=== PATIENT | male | born 2000 | race Caucasian/White ===

== ENCOUNTER 2018-04-19 18:31 | Emergency (ER) | payer OTHER ==
[~2018-04-19] VITALS: Ht 182.9 cm; Wt 108.9 kg
[2018-04-19 19:14] LABS: BILIRUBIN,URINE NEGATIVE (NEG); CLARITY,URINE TURBID; COLOR,URINE YELLOW; NITRITE,URINE NEGATIVE (NEG); PH,URINE 8.5; PROTEIN,URINE NEGATIVE (NEG-TRACE); UROBILINOGEN,URINE 0.2 mg/dL (0.2 mg/dL)
[2018-04-19 19:30] VITALS: BP 164/85
[2018-04-19 19:30] LABS: AMORPHOUS SEDIMENT,UR PRESENT /HPF; BACTERIA,URINE FEW /HPF (0-FEW); RBC,URINE 0 /HPF (0-2); WBC,URINE 0 /HPF (0-4)
--- NOTE | 2018-04-19 19:49 | RAD ---
EXAM: Cunningham scale and color Doppler scrotal sonogram. HISTORY: Pain. TECHNIQUE: Cunningham scale and color Doppler sonographic imaging of the testes with spectral waveform analysis was performed. COMPARISON: None. FINDINGS: The right testis measures 4.3 x 3.3 x 2.5 cm. Left testis measures 4.4 x 2.6 x 2.5 cm. There is normal symmetric blood flow within both testes. No focal testicular parenchymal lesion is seen. There is a small right hydrocele. There is a small right epididymal cyst measuring 4 mm. IMPRESSION: 1. Unremarkable testes. 2. Small right hydrocele. 3. Small right epididymal cyst. Electronically signed by: Charity Maguire MD (04/19/2018 7:45 PM) [facility]
[2018-04-19] MEDS ORDERED: oxyCODONE/APAP 10/325 1 TAB TABLET PO ONE (20:00)
[2018-04-19] MEDS ORDERED: ONDANSETRON ODT 4 MG TAB.RAPDIS. PO ONE (20:00)
--- NOTE | 2018-04-19 20:01 | PHYS DOC ---
Past Medical History Past Medical History: No Pertinent History Past Surgical History: Appendectomy Alcohol Use: None Drug Use: None Adult General Chief Complaint Chief Complaint: TESTICULAR PAIN OR INJURY HPI HPI Patient is a 27 year old male presents with intermittent left testicular pain described as sharp for the past 18 hours. Pain is worse palpation, position pain. Denies groin pain, flank pain, nausea vomiting sweats. No rectal pain. No urethral discharge. No fever chills or sweats. No history of kidney stones. No other acute symptoms or complaints. [] Review of Systems Review of Systems .. All other review symptoms reviewed. All other systems were reviewed and found to be within normal limits, except as documented in this note. Current Medications Current Medications Current Medications Medications (Trade) Dose Ordered Sig/Vahe Start Time Stop Time Status Last Admin Dose Admin Ondansetron HCl (Zofran Odt) 4 mg 1X ONCE 04/19/18 20:00 04/19/18 20:01 04/19/18 19:48 4 MG Oxycodone/ Acetaminophen (Percocet 10/325) 1 tab 1X ONCE 04/19/18 20:00 04/19/18 20:01 04/19/18 19:48 1 TAB Allergies Allergies Allergies Coded Allergies Type Severity Reaction Last Updated Verified metoclopramide Allergy Mild jittery 04/19/18 Yes Physical Exam Physical Exam Constitutional: Well developed, well nourished, no acute distress, non-toxic appearance. [] HENT: Normocephalic, atraumatic, bilateral external ears normal, oropharynx moist, no oral exudates, nose normal. [] Eyes: PERRLA, EOMI, conjunctiva normal, no discharge. [] Neck: Normal range of motion, no tenderness, supple, no stridor. [] Cardiovascular:Heart rate regular rhythm, no murmur [] Lungs & Thorax: Bilateral breath sounds clear to auscultation [] Abdomen: Bowel sounds normal, soft, no tenderness, no masses, no pulsatile masses. [] : Scrotum, no swelling, erythema, both testicles present, cremasteric reflexes intact. Left testicular tenderness, penis, circumcised, no discharge or lesions. Palpable hernias.. [] Back: No tenderness, no CVA tenderness. [] Extremities: No tenderness, no cyanosis, no clubbing, ROM intact, no edema. [] Neurologic: Alert and oriented X 3, normal motor function, normal sensory function, no focal deficits noted. [] Psychologic: Affect normal, judgement normal, mood normal. [] Current Patient Data Vital Signs Vital Signs Date Time Temp Pulse Resp B/P (MAP) Pulse Ox O2 Delivery O2 Flow Rate FiO2 04/19/18 19:48 18 97 04/19/18 18:37 98.2 124 168/88 (114) Room Air 98.2 Lab Values Laboratory Tests Test 04/19/18 19:06 Urine Collection Type Unknown Urine Color Yellow Urine Clarity Turbid Urine pH 8.5 Urine Specific Ayr 1.025 Urine Protein Negative mg/dL (NEG-TRACE) Urine Glucose (UA) Negative mg/dL (NEG) Urine Ketones (Stick) Negative mg/dL (NEG) Urine Blood Negative (NEG) Urine Nitrite Negative (NEG) Urine Bilirubin Negative (NEG) Urine Urobilinogen Dipstick 0.2 mg/dL (0.2 mg/dL) Urine Leukocyte Esterase Negative (NEG) Urine RBC 0 /HPF (0-2) Urine WBC 0 /HPF (0-4) Urine Amorphous Sediment Present /HPF Urine Bacteria Few /HPF (0-FEW) Urine Mucus Slight /LPF EKG EKG [] Radiology/Procedures Radiology/Procedures [] Course & Med Decision Making Course & Med Decision Making Pertinent Labs and Imaging studies reviewed. (See chart for details) [Ultrasound, UA nondiagnostic. Good blood flow in both testiciles. Will treat supportively PCP follow-up. Return precautions reviewed.] Dragon Disclaimer Dragon Disclaimer This electronic medical record was generated, in whole or in part, using a voice recognition dictation system. Departure Departure Impression: Primary Impression: Testicular pain, left Disposition: 01 HOME, SELF-CARE Condition: GOOD Referrals: JUDI MOORE (PCP) Patient Instructions: Testicular Masses Additional Instructions: Evaluated emergency department for left testicular pain. Lab work and testicular ultrasound were performed and are nondiagnostic. The exact cause of your symptoms has not been determined. Please take 600 mg of ibuprofen 3 times daily support. With your PCP in the next 1-2 days for reevaluation. Return to the ED if new or worsening symptoms. DAYSI IBARRA DO Apr 19, 2018 20:00
== END 2018-04-19 20:16 | disposition home or self-care (01) ==
LOC: ER 18:31 → EDBD 18:31 → ER 20:16
DX: N50.812 Left testicular pain (principal); Z90.89 Acquired absence of other organs; Z88.8 Allergy status to other drugs, medicaments and biological substances
CPT/HCPCS: 76870; 81001; 99285; Q0162

== ENCOUNTER 2018-06-21 13:23 | Emergency (ER) | payer OTHER ==
[~2018-06-21] VITALS: Ht 182.9 cm; Wt 113.4 kg
[2018-06-21 13:38] VITALS: BP 133/72
--- NOTE | 2018-06-21 13:43 | PHYS DOC ---
Past Medical History Past Medical History: No Pertinent History Past Surgical History: Appendectomy Alcohol Use: None Drug Use: None Adult General Chief Complaint Chief Complaint: LACERATION/AVULSION HPI HPI Patient is a 18 year old male who presents with right thumb injury. The patient was using a leaf blower and somehow his thumb came into contact with the fan part of that machine. He sustained an avulsion injury to the tip of the right thumb. The patient is uncertain when his last tetanus shot was. He denies any additional complaints or injuries today. Review of Systems Review of Systems Constitutional: Denies Eyes: Denies change in visual acuity HENT: Denies nasal congestion Respiratory: Denies cough or shortness of breath Cardiovascular: No additional information not addressed in HPI GI: Denies : Denies Musculoskeletal: Denies Integument: Denies rash or skin lesions Neurologic: Denies headache All other systems were reviewed and found to be within normal limits, except as documented in this note. Current Medications Current Medications Current Medications Medications (Trade) Dose Ordered Sig/Vahe Start Time Stop Time Status Last Admin Dose Admin Acetaminophen/ Hydrocodone Bitart (Lortab 5/325) 2 tab 1X ONCE 06/21/18 14:30 06/21/18 14:31 DC 06/21/18 14:38 2 TAB Diphtheria/ Tetanus/Acell Pertussis (Boostrix) 0.5 ml ONCE ONCE 06/21/18 14:00 06/21/18 14:01 DC 06/21/18 14:13 0.5 ML Lidocaine HCl (Lidocaine 1% 20ml Vial) 20 ml 1X ONCE 06/21/18 13:45 06/21/18 13:46 DC 06/21/18 14:12 20 ML Allergies Allergies Allergies Coded Allergies Type Severity Reaction Last Updated Verified metoclopramide Adverse Reaction Mild jittery 06/21/18 Yes Physical Exam Physical Exam Constitutional: Well developed, well nourished, no acute distress, non-toxic appearance HENT: Normocephalic, atraumatic, bilateral external ears normal, oropharynx moist Eyes: PERRLA, EOMI, conjunctiva normal Neck: Normal range of motion, no tenderness Lungs & Thorax: Bilateral breath sounds clear Abdomen: Bowel sounds normal, soft, no tenderness Skin: Warm, dry, no erythema, no rash Extremities: Distal tip of the right thumb. There is no injury that is suturable. The avulsion is through the superficial layers of the skin but not into the subdermal tissue Neurologic: Alert and oriented X 3 Psychologic: Affect normal Current Patient Data Vital Signs Vital Signs Date Time Temp Pulse Resp B/P (MAP) Pulse Ox O2 Delivery O2 Flow Rate FiO2 06/21/18 14:38 16 99 Room Air 06/21/18 13:38 99.0 90 133/72 (92) 99.0 EKG EKG [] Radiology/Procedures Radiology/Procedures Thumb XR: no acute fracture. Course & Med Decision Making Course & Med Decision Making Pertinent Labs and Imaging studies reviewed. (See chart for details) Patient was evaluated in the emergency department for an avulsion injury to the tip of the right thumb. The wound was not amenable to suturing. The wound was dressed with Vaseline gauze after being cleaned by nursing staff. A splint was applied for comfort. The patient was given a tetanus shot in the ER. He was discharged to home with some occasions for pain. Wound care was discussed and signs and symptoms of infection and patient was advised to come back should these occur. All of his questions were answered prior to discharge home. Dragon Disclaimer Dragon Disclaimer This electronic medical record was generated, in whole or in part, using a voice recognition dictation system. Departure Departure Disposition: HOME, SELF-CARE Condition: GOOD Referrals: JUDI MOORE (PCP) Scripts Ibuprofen (IBUPROFEN) 800 Mg Tablet 800 MG PO PRN TID PRN for PAIN, #20 TAB take with food or milk to avoid upsetting stomach Prov: ROBERT STRINGER DO 06/21/18 Hydrocodone/Apap 5-325 (NORCO 5-325 TABLET) 1 Each Tablet 1-2 EACH PO PRN Q6HRS PRN for SEVERE PAIN, #15 as needed for pain Prov: ROBERT STRINGER DO 06/21/18 ROBERT STRINGER DO Jun 21, 2018 13:43
[2018-06-21] MEDS ORDERED: LIDOCAINE 1% Multi-Dose 20 ML VIAL. INJ ONE (13:45)
[2018-06-21] MEDS ORDERED: DIPHTH,PERTUSS(ACELL),TET TOX 0.5 ML DISP.SYRIN. VAX IM ONE (14:00)
--- NOTE | 2018-06-21 14:28 | RAD ---
Examination: 3 views of the left thumb HISTORY: History of laceration of the left thumb COMPARISON: None available. FINDINGS: The alignment of the first carpometacarpal joint, metacarpophalangeal, interphalangeal joints grossly appears unremarkable. There is no acute fracture or dislocation identified. Small soft tissue laceration identified in the distal tip of the thumb. IMPRESSION: 1. No acute osseous findings. 2. Small soft tissue laceration identified in the distal tip of the thumb. Electronically signed by: Mihir Mendez MD (06/21/2018 2:24 PM) [facility]
[2018-06-21] MEDS ORDERED: IBUP-1060 PO (14:29)
[2018-06-21] MEDS ORDERED: HYDR-3164 PO (14:29)
[2018-06-21] MEDS ORDERED: HYDROcodone/APAP 5/325MG 1 TAB TABLET PO ONE (14:30)
== END 2018-06-21 14:45 | disposition home or self-care (01) ==
LOC: ER 13:23
DX: S61.011A Laceration without foreign body of right thumb without damage to nail, initial encounter (principal); Z88.8 Allergy status to other drugs, medicaments and biological substances; Y28.8XXA Contact with other sharp object, undetermined intent, initial encounter; Y93.89 Activity, other specified; Y92.89 Other specified places as the place of occurrence of the external cause; Y99.8 Other external cause status
CPT/HCPCS: 29125; 73140; 90471; 90715; 99283

== ENCOUNTER 2019-04-10 00:16 | Inpatient (IN) | payer SELFPAY ==
[~2019-04-10] VITALS: Ht 180.3 cm; Wt 100.8 kg
[~2019-04-10 00:16] MED LIST: HYDR-3164 PO; IBUP-1060 PO
[2019-04-10] MEDS ORDERED: GADOTERATE 7.5 MMOL/15ML VIAL. IVP ONE (02:00)
--- NOTE | 2019-04-10 02:31 | RAD ---
Brain MRI, With and Without Contrast: History: headaches and possible intracranial mass. Technique: Multiplanar and multisequence imaging of the brain was performed before and after the administration of 15 cc of IV Magnevist contrast. Diffusion weighted sequences were performed. Findings: There is no mass effect or extraaxial fluid collections. There is no hydrocephalus.The mcclain and white matter appears normal and symmetrical. Diffusion weighted sequences demonstrate no imaging evidence of acute ischemia. There is no abnormal enhancement. There is opacification of the right frontal sinus. Impression: Opacification right frontal sinus. No intracranial findings. End impression Brain and to MRV Without Contrast: Technique: 3D [id number] 2 slab imaging of the brain was performed, without contrast. Maximum intensity reconstruction was performed. Findings: The venous system appears normal. Impression: Negative examination. Electronically signed by: Reagan Lilly III, MD (04/10/2019 2:28 AM) [facility]
--- NOTE | 2019-04-10 02:31 | RAD ---
Brain MRI, With and Without Contrast: History: headaches and possible intracranial mass. Technique: Multiplanar and multisequence imaging of the brain was performed before and after the administration of 15 cc of IV Magnevist contrast. Diffusion weighted sequences were performed. Findings: There is no mass effect or extraaxial fluid collections. There is no hydrocephalus.The mcclain and white matter appears normal and symmetrical. Diffusion weighted sequences demonstrate no imaging evidence of acute ischemia. There is no abnormal enhancement. There is opacification of the right frontal sinus. Impression: Opacification right frontal sinus. No intracranial findings. End impression Brain and to MRV Without Contrast: Technique: 3D [id number] 2 slab imaging of the brain was performed, without contrast. Maximum intensity reconstruction was performed. Findings: The venous system appears normal. Impression: Negative examination. Electronically signed by: Reagan Lilly III, MD (04/10/2019 2:28 AM) [facility]
[2019-04-10] MEDS: fentaNYL PF VIAL 100 MCG/2 ML VIAL IVP PRN ×3 (02:52→11:02)
[2019-04-10 03:15] VITALS: BP 144/93
[2019-04-10 07:00] VITALS: BP 131/82
--- NOTE | 2019-04-10 08:16 | NUR ---
Pt admitted this am from MRI and placed on heart monitor, however did not show on monitor until this am. Pt asymptomatic and vitals within normal limits during the am. Will continue to monitor.
[2019-04-10] MEDS ORDERED: FLUTICASONE 50MCG/NASAL SPRAY 16GM BOTTLE. NS SCH (10:30)
[2019-04-10 11:00] VITALS: BP 126/78
--- NOTE | 2019-04-10 11:11 | HP ---
ADMIT DATE: 04/10/2019 HISTORY OF PRESENT ILLNESS: The patient is a 19-year-old male patient who presented to the Emergency Room with a complaint of headache after what he describes as it jabs. The patient has had similar instances in the past, most recently one on 03/24 this month. He does have a past history of anxiety, chronic pain, chronic lumbar and sciatic pain and migraines. The patient has not followed up with his primary care physician since last visit. The patient in the past was dependent on narcotic for his chronic pain and also benzodiazepine for muscle spasm. He reportedly weaned himself off of all anxiety medication. 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 He was evaluated in the Emergency Room and has had lab work, which was basically mostly unremarkable. Urinalysis was also unremarkable and toxic screen was positive for alcohol. Blood alcohol level of 17 mg/dL. Apparently, he has had a CT scan of the head, which showed that the patient has hypodensity in the area of the left sigmoid transverse sinus. Additionally, there is an area of rounded hypodensity series 2 image 12 just above this area measuring approximately 1.9 cm in diameter. No acute vascular territory infarction identified. Godfrey white distinction is preserved. The ventricular system is within normal limits without compression hydrocephalus. Basal cisterns are well maintained. The visualized portion of the paranasal sinuses and mastoid air cells are well pneumatized. No acute fracture and the impression is that the patient has a left posterior cranial fossa. In the left posterior cranial fossa, there is a round hyperdensity measuring 1.8 cm in diameter with possible hypodensity within the expected location of the sigmoid transverse sinus. Differential consideration includes sinus thrombosis. Given the possibility of a rounded mass lesion, MRI brain with contrast if possible is recommended for further evaluation; and therefore, the patient was transferred to [facility] for an MRI and also to consult the neurologist and neurosurgeon. PAST MEDICAL HISTORY: Significant for anxiety, chronic lumbar and sciatic pain and migraine headache for which he was on benzodiazepine and narcotic, but apparently he weaned himself off of all anxiety medication. PAST SURGICAL HISTORY: Significant for appendectomy. FAMILY HISTORY: Noncontributory. SOCIAL HISTORY: He is single, apparently does not smoke, drinks alcohol rarely and also marijuana. ALLERGIES: HE IS ALLERGIC TO METOCLOPRAMIDE. MEDICATIONS: He is on ciprofloxacin 250 mg twice a day, naproxen 500 mg twice a day and hydroxyzine 25 mg 3 times a day. PHYSICAL EXAMINATION: GENERAL: On arrival to the Emergency Room, the patient looked well and was clearly in no apparent respiratory distress. No pallor, jaundice, cyanosis or thyromegaly. No jugular venous distention. No limb edema. VITAL SIGNS: His heart rate was 114, blood pressure was 130/78, temperature was 99.1, respiratory rate 20, and oxygen saturation was 99% on room air. HEAD, EYES, EARS, NOSE AND THROAT: Showed normocephalic, atraumatic. NECK: Supple. HEART: Showed normal first and second heart sounds. No gallop or murmur. CHEST: Clear to auscultation. No crepitation or rhonchi. ABDOMEN: Distended, soft, nontender. No guarding or rigidity. No organomegaly. All hernial orifice intact. Bowel sounds normal. NEUROLOGIC: He was awake, alert, responding appropriately. All cranial nerves intact. EXTREMITIES: He moves extremities without difficulty, ambulates without assistance or assistive devices. LABORATORY DATA: His lab work done at Emergency [facility] of [facility] showed a white cell count of 8400, hemoglobin 16.7, hematocrit 49, MCV 89 and platelet count 242,000 with normal manual differential. His prothrombin time, INR and aPTT were normal. D-dimer was 0.39 mg/dL. His chemistry showed a serum sodium 144, potassium 3.8, chloride 105, bicarbonate 24, anion gap of 15, BUN 11, creatinine 0.9, estimated GFR was 160 mL per minute. His glucose was 109, calcium was 9.9, magnesium 2. Total bilirubin, AST, ALT, alkaline phosphatase were normal. Total CK was 154. Total protein was 8.8, albumin was 5.1. Urinalysis essentially unremarkable. Toxic screen was positive for blood alcohol of 17 mg/dL. The patient was transferred to [facility] for an MRI and MRA and to consult the neurologist as well as the neurosurgeon. VICENTE RALPH MD DR: JONATAN/tomasa JOB#: [id number] / [id number]
[2019-04-10] MEDS: AMOXICILLIN/K CLAV 875/125MG TABLET. PO SCH ×2 (11:34→20:08)
[2019-04-10 11:35] LABS: HEMATOCRIT 42.9 % (39.0-53.0); HEMOGLOBIN 14.7 g/dL (13.0-17.5); RED BLOOD COUNT 4.88 x10^6/uL (4.30-5.70); RED CELL DISTRIBUTION WIDTH 12.9 % (11.5-14.5); WHITE BLOOD COUNT 8.2 x10^3/uL (4.0-11.0)
[2019-04-10] MEDS: oxyCODONE IR 5 MG TABLET PO PRN ×2 (11:38→20:02)
[2019-04-10 11:53] LABS: ALBUMIN 4.3 g/dL (3.4-5.0); ALBUMIN/GLOBULIN RATIO 1.2 (1.0-1.7); CALCIUM 9.3 mg/dL (8.5-10.1); GFR 94.3; POTASSIUM 3.5 mmol/L (3.5-5.1); TOTAL BILIRUBIN 0.5 mg/dL (0.2-1.0); TOTAL PROTEIN 7.9 g/dL (6.4-8.2)
[2019-04-10] MEDS: MORPHINE SULFATE 4 MG/ML VIAL. IV PRN ×3 (13:32→23:14)
[2019-04-10 15:00] VITALS: BP 129/74
[2019-04-10 19:52] VITALS: BP 124/66
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
[2019-04-10] MEDS: clonazePAM 0.5 MG TABLET PO SCH (23:30)
[2019-04-10 23:42] VITALS: BP 122/88
[2019-04-11] MEDS: MORPHINE SULFATE 4 MG/ML VIAL. IV PRN (05:58)
[2019-04-11 07:00] VITALS: BP 111/83
[2019-04-11] MEDS: oxyCODONE IR 5 MG TABLET PO PRN ×2 (08:02→10:59)
[2019-04-11] MEDS ORDERED: CLON-77 PO (08:41)
[2019-04-11] MEDS ORDERED: CITA20TA6 PO (08:41)
[2019-04-11] MEDS ORDERED: AMOX1TAB61 PO (08:41)
[2019-04-11] MEDS ORDERED: CITALOPRAM 20 MG TABLET. PO SCH (09:00)
--- NOTE | 2019-04-11 09:30 | DS ---
DATE OF DISCHARGE: HOSPITAL COURSE: The patient is a 19-year-old male patient who was seen initially at [facility] for severe headache and a CT scan there showed that there is hypodensity in the area of left sigmoid transverse sinus. Additionally, there is also an area of rounded hypodensity above this area measuring approximately 1.9 cm in diameter; however, no acute vascular territory infarction identified and therefore [facility] was [facility], where an angiography and MRI done and basically showed that there is opacification of the right frontal sinuses. No intracranial finding. There is no mass effect or extraaxial fluid collection. There is no hydrocephalus. Godfrey and white matter appears normal and symmetrical, diffusion weighted sequences demonstrates no imaging evidence of acute ischemia. There is no abnormal enhancement. There is opacification of the right frontal sinuses. The patient was seen by his brain with MRV without contrast showed that the venous system appears normal. He was seen in consultation by Dr. Myles and his impression is that the patient has withdrawal syndrome from his Prozac and clonazepam and recommended to start him on a different antidepressant. In fact, he was started on citalopram hydrobromide 20 mg and also on tapering course of clonazepam and he will be discharged home to continue on citalopram 20 mg daily as well as tapering course of clonazepam at 0.5 mg 3 times a day for 2 weeks and then 0.25 mg twice a day for 2 weeks and eventually 0.5 mg once a day for 2 weeks. I also did start him on Augmentin for his right frontal sinusitis and also some oxycodone for pain medication. PHYSICAL EXAMINATION: GENERAL: When I saw him this morning, he looked well and was clearly in no apparent respiratory distress. No pallor, jaundice, cyanosis or thyromegaly. No jugular venous distension. No limb edema. VITAL SIGNS: Her heart rate was 90, blood pressure was 122/88, temperature was 98.2, respiratory rate 20, and oxygen saturation was 98%. HEAD, EYES, EARS, NOSE AND THROAT: Showed normocephalic, atraumatic. NECK: Supple. HEART: Showed normal first and second heart sounds with no gallop, rub or murmur. CHEST: Clear to auscultation. No crepitation or rhonchi. ABDOMEN: Distended, soft, nontender. NEUROLOGIC: He was awake, alert, responding appropriately. All cranial nerves are intact. He moves extremities without difficulty, ambulates without assistance or assistive devices. LABORATORY DATA: Showed a serum sodium 144, potassium 3.5, chloride 105, bicarbonate 26, anion gap 13, BUN 14, creatinine 1, estimated GFR was 94 mL per minute, his glucose 127, calcium was 9.3. Total bilirubin, AST, ALT, alkaline phosphatase were normal. Total protein was 7.9, albumin 4.3. His white cell count was 8200, hemoglobin 14.7, hematocrit 43, MCV 88 and platelet count 208,000. DISCHARGE MEDICATIONS: He was discharged to continue on Augmentin 875 mg 1 tablet twice a day with food for 10 days, citalopram hydrobromide 20 mg once a day, clonazepam 0.5 mg 3 times a day and oxycodone immediate release 1 tablet every 6 hours. FINAL DISCHARGE DIAGNOSES: 1. Acute right frontal sinusitis. 2. Severe generalized anxiety. 3. Obsessive compulsive disorder. 4. Withdrawal from Prozac and clonazepam. VICENTE RALPH MD DR: JONATAN/tomasa JOB#: [id number] / [id number]
[2019-04-11] MEDS: clonazePAM 0.5 MG TABLET PO SCH (10:07)
[2019-04-11] MEDS: AMOXICILLIN/K CLAV 875/125MG TABLET. PO SCH (10:07)
--- NOTE | 2019-04-11 11:26 | NUR ---
Pt dishcarged to home with girlfriend. Discharge teaching done. Verbalized understanding.
--- NOTE | 2019-04-11 13:08 | PDOC ---
PROGRESS NOTES Assessment Jabbing head pain, probable withdrawal syndrome from the Prozac No dural sinus thrombosis Plan Continue citalopram Resume clonazepam on a taper Follow-up with neurology in 4-6 weeks if headaches persist. Subjective He still has a headache Objective Vital Signs Date Time Temp Pulse Resp B/P (MAP) Pulse Ox O2 Delivery O2 Flow Rate FiO2 04/11/19 10:59 17 Room Air 04/11/19 08:02 98 04/11/19 07:00 98.2 92 111/83 (92) 98.2 Intake and Output 04/11/19 07:00 Intake Total 1280 ml Output Total 100 ml Balance 1180 ml Intake Oral 1280 ml Output Urine Total 100 ml # Voids 3 PHYSICAL EXAM Alert. Oriented to time, place and person. PERRL. EOMI. CN: no focal findings. Muscle tone: normal. Muscle strength: 5/5 DTR: 2+ Plantar reflex: flexor Gait: normal. Sensory exam: no abnormal findings. No cerebellar signs elicited. Review of Relevant I have reviewed the following items franchesca (where applicable) has been applied. Labs Laboratory Tests Test 04/10/19 11:09 White Blood Count 8.2 x10^3/uL (4.0-11.0) Red Blood Count 4.88 x10^6/uL (4.30-5.70) Hemoglobin 14.7 g/dL (13.0-17.5) Hematocrit 42.9 % (39.0-53.0) Mean Corpuscular Volume 88 fL (79-100) Mean Corpuscular Hemoglobin 30 pg (25-35) Mean Corpuscular Hemoglobin Concent 34 g/dL (31-37) Red Cell Distribution Width 12.9 % (11.5-14.5) Platelet Count 208 x10^3/uL (140-400) Sodium Level 144 mmol/L (136-145) Potassium Level 3.5 mmol/L (3.5-5.1) Chloride Level 105 mmol/L (98-107) Carbon Dioxide Level 26 mmol/L (21-32) Anion Gap 13 (6-14) Blood Urea Nitrogen 14 mg/dL (8-26) Creatinine 1.0 mg/dL (0.7-1.3) Estimated GFR (Cockcroft-Gault) 94.3 BUN/Creatinine Ratio 14 (6-20) Glucose Level 127 mg/dL (70-99) Calcium Level 9.3 mg/dL (8.5-10.1) Total Bilirubin 0.5 mg/dL (0.2-1.0) Aspartate Amino Transf (AST/SGOT) 15 U/L (15-37) Alanine Aminotransferase (ALT/SGPT) 36 U/L (16-63) Alkaline Phosphatase 99 U/L (46-116) Total Protein 7.9 g/dL (6.4-8.2) Albumin 4.3 g/dL (3.4-5.0) Albumin/Globulin Ratio 1.2 (1.0-1.7) Medications Current Medications Gadoterate Meglumine (Dotarem) 22.8 ml 1X ONCE IVP Last administered on 04/10/19at 01:49; Start 04/10/19 at 02:00; Stop 04/10/19 at 02:01; Status DC Fentanyl Citrate (Fentanyl 2ml Vial) 50 mcg PRN Q3HRS PRN IVP SEVERE PAIN 7-10 Last administered on 04/10/19at 11:02; Start 04/10/19 at 02:45; Stop 04/11/19 at 11:31; Status DC Oxycodone HCl (Roxicodone) 5 mg PRN Q4HRS PRN PO PAIN Last administered on 04/11/19at 10:59; Start 04/10/19 at 10:00; Stop 04/11/19 at 11:31; Status DC Amoxicillin/ Clavulanate Potassium (Augmentin 875/ 125mg) 1 tab BID PO Last administered on 04/11/19at 10:07; Start 04/10/19 at 10:30; Stop 04/11/19 at 11:31; Status DC Fluticasone Propionate (Flonase) 2 spray DAILY NS Last administered on 04/10/19at 11:34; Start 04/10/19 at 10:30; Stop 04/11/19 at 11:31; Status DC Morphine Sulfate (Morphine Sulfate) 4 mg PRN Q4HRS PRN IV MODERATE PAIN Last administered on 04/11/19at 05:58; Start 04/10/19 at 13:30; Stop 04/11/19 at 11:31; Status DC Citalopram Hydrobromide (CeleXA) 20 mg DAILY PO Last administered on 04/11/19at 10:07; Start 04/11/19 at 09:00; Stop 04/11/19 at 11:31; Status DC Clonazepam (KlonoPIN) 0.5 mg TID PO Last administered on 04/11/19at 10:07; Start 04/10/19 at 23:30; Stop 04/11/19 at 11:31; Status DC Active Scripts Active Augmentin 875-125 Tablet (Amoxicillin/Potassium Clav) 1 Each Tablet 1 Tab PO BID 10 Days Clonazepam (Clonazepam) 0.5 Mg Tablet 0.5 Mg PO TID 7 Days Citalopram Hbr (Citalopram Hydrobromide) 20 Mg Tablet 1 Tab PO DAILY 30 Days Vitals/I & O Vital Sign - Last 24 Hours 04/10/19 04/10/19 04/10/19 04/10/19 13:32 14:04 15:00 18:37 Temp 97.7 97.7 Pulse 77 Resp 18 B/P (MAP) 129/74 (92) Pulse Ox 98 98 97 97 O2 Delivery Room Air Room Air Room Air Room Air 04/10/19 04/10/19 04/10/19 04/10/19 19:07 19:52 20:00 20:02 Temp 98.2 98.2 Pulse 80 Resp 20 B/P (MAP) 124/66 (85) Pulse Ox 98 O2 Delivery Room Air Room Air Room Air Room Air 04/10/19 04/10/19 04/10/19 04/10/19 21:02 23:14 23:42 23:44 Temp 98.2 98.2 Pulse 90 Resp 20 B/P (MAP) 122/88 (99) Pulse Ox 98 O2 Delivery Room Air Room Air Room Air Room Air 04/11/19 04/11/19 04/11/19 04/11/19 03:52 05:58 06:28 07:00 Temp 98.2 98.2 Pulse 92 Resp 18 B/P (MAP) 111/83 (92) Pulse Ox 95 O2 Delivery Room Air Room Air Room Air Room Air 04/11/19 04/11/19 04/11/19 04/11/19 08:00 08:02 09:02 10:59 Resp 19 17 17 Pulse Ox 98 O2 Delivery Room Air Room Air Room Air Room Air Intake and Output 04/10/19 04/10/19 04/11/19 15:00 23:00 07:00 Intake Total 360 ml 360 ml 560 ml Output Total 100 ml Balance 360 ml 360 ml 460 ml Images Brain MRI, With and Without Contrast: History: headaches and possible intracranial mass. Technique: Multiplanar and multisequence imaging of the brain was performed before and after the administration of 15 cc of IV Magnevist contrast. Diffusion weighted sequences were performed. Findings: There is no mass effect or extraaxial fluid collections. There is no hydrocephalus.The mcclain and white matter appears normal and symmetrical. Diffusion weighted sequences demonstrate no imaging evidence of acute ischemia. There is no abnormal enhancement. There is opacification of the right frontal sinus. Impression: Opacification right frontal sinus. No intracranial findings. End impression Brain and to MRV Without Contrast: Technique: 3D [id number] 2 slab imaging of the brain was performed, without contrast. Maximum intensity reconstruction was performed. Findings: The venous system appears normal. Impression: Negative examination. RAMIRO ROSALES MD Apr 11, 2019 13:08
== END 2019-04-11 11:30 | disposition home or self-care (01) | DRG 153 ==
LOC: 6 SOUTH 00:16
PROVIDERS: ADMIT Internal Medicine; ATTEND Internal Medicine
DX: J01.10 Acute frontal sinusitis, unspecified (principal); G43.909 Migraine, unspecified, not intractable, without status migrainosus; G89.29 Other chronic pain; F41.1 Generalized anxiety disorder; F42.9 Obsessive-compulsive disorder, unspecified; Y90.0 Blood alcohol level of less than 20 mg/100 ml; F17.210 Nicotine dependence, cigarettes, uncomplicated; Z79.899 Other long term (current) drug therapy; Z88.8 Allergy status to other drugs, medicaments and biological substances
CPT/HCPCS: 36415; 70544; 70553; 80053; 85027; 99406; A9575; J2270; J3010; G0378